=== PATIENT | male | born 1950 | race American Indian/Alaskan Native ===

== ENCOUNTER 2024-03-22 20:54 | Outpatient (CLI) | payer MEDICARE | END 2024-03-22 23:59 | disposition short-term general hospital (02) | LOC: EMS 20:54 | DX: R06.00 Dyspnea, unspecified (principal); Z95.1 Presence of aortocoronary bypass graft; Z79.01 Long term (current) use of anticoagulants | CPT/HCPCS: A0425; A0429; A0888 ==